=== PATIENT | female | born 1995 | race African-American/Black ===

== ENCOUNTER 2019-05-24 07:59 | Emergency (ER) | payer OTHER ==
[~2019-05-24] VITALS: Ht 167.6 cm; Wt 59.0 kg
[2019-05-24 08:09] VITALS: BP 111/56
[2019-05-24] MEDS ORDERED: NEOM10SO7 OT (08:31)
[2019-05-24] MEDS ORDERED: ACET325T9 PO (08:31)
--- NOTE | 2019-05-24 08:32 | PHYS DOC ---
Past History Past Medical History: No Pertinent History Past Surgical History: Smoking: Non-smoker Alcohol Use: None Drug Use: None Adult General Chief Complaint Chief Complaint: EARACHE/EAR PAIN HPI HPI Patient is a 24-year-old female who presents with right year pain that has been going on for the past week, getting worse over time. Her boyfriend looked at her ear 3 days ago and said that there was something in it that looked like a zit. He reevaluated it this morning, and tried popping it. There was return of some bloody and purulent material. There has been no travel.There has been no swimming. Patient denies any fever. She reports decreased hearing in the right year because of this. Pain is moderate to severe. She has taken no pain medicine because she is approximately 4 months . Increased pain in the ear with touch. This is her fourth . -0-0-3. No vaginal bleeding or discharge. She reports feeling the baby move.[] Review of Systems Review of Systems Constitutional: Denies fever or chills [] Eyes: Denies change in visual acuity, redness, or eye pain [] HENT: Denies nasal congestion or sore throat, see history of present illness [] Respiratory: Denies cough or shortness of breath [] Cardiovascular: No chest pain or palpitations[] GI: Denies abdominal pain, nausea, vomiting, bloody stools or diarrhea [] : Denies dysuria or hematuria [] Musculoskeletal: Denies back pain or joint pain [] Integument: Denies rash or skin lesions [] Neurologic: Denies headache, focal weakness or sensory changes [] Endocrine: Denies polyuria or polydipsia [] All other systems were reviewed and found to be within normal limits, except as documented in this note. Allergies Allergies Allergies Coded Allergies Type Severity Reaction Last Updated Verified No Known Drug Allergies 05/24/19 No Physical Exam Physical Exam Constitutional: Well developed, well nourished, no acute distress, non-toxic appearance. [] HENT: Normocephalic, atraumatic, bilateral external ears normal, no mastoid tenderness. Left ear canal and TM are normal. Right canal has a pustule at the 1 o'clock position. There is swelling of the right canal. Right TM is normal. Oropharynx moist, no oral exudates, nose normal. [] Eyes: PERRLA, EOMI, conjunctiva normal, no discharge. [] Neck: Normal range of motion, no tenderness, supple, no stridor. [] Cardiovascular:Heart rate regular rhythm, no murmur [] Lungs & Thorax: Bilateral breath sounds clear to auscultation [] Abdomen: Bowel sounds normal, soft, no tenderness, fundus is present below the umbilicus, heart tones in the 160s, no pulsatile masses. [] Skin: Warm, dry, no erythema, no rash. [] Back: No tenderness, no CVA tenderness. [] Extremities: No tenderness, no cyanosis, no clubbing, ROM intact, no edema. [] Neurologic: Alert and oriented X 3, normal motor function, normal sensory function, no focal deficits noted. [] Psychologic: Affect normal, judgement normal, mood normal. [] Current Patient Data Vital Signs Vital Signs Date Time Temp Pulse Resp B/P (MAP) Pulse Ox O2 Delivery O2 Flow Rate FiO2 05/24/19 08:09 97.8 104 18 100 Room Air EKG EKG [] Radiology/Procedures Radiology/Procedures [] Course & Med Decision Making Course & Med Decision Making Pertinent Labs and Imaging studies reviewed. (See chart for details) Emergency department course: Patient arrived, was placed in bed, and tolerated exam well. Findings and plan were discussed with the patient who voiced understanding. All questions were answered. She was discharged in improved condition. Medical decision making: Patient appears to have an otitis externa. We will treat with topical medication. Will prescribe acetaminophen for pain management given that she is .[] Dragon Disclaimer Dragon Disclaimer This electronic medical record was generated, in whole or in part, using a voice recognition dictation system. Departure Departure: Impression: Primary Impression: Right otitis externa Disposition: 01 HOME, SELF-CARE Condition: IMPROVED Referrals: PCP,NO (PCP) Patient Instructions: Otitis Externa Additional Instructions: Follow-up with your regular doctor in 2 days for a recheck. Use the medication as prescribed. Return to the ER if worsening pain, fever of more than 101, or any other concerns. Scripts Acetaminophen (TYLENOL) 325 Mg Tablet 1-2 TAB PO QID for PAIN, #60 TAB 0 Refills Prov: HEATHER GUO DO 05/24/19 Neomycin/Polymyxin B Sulf/Hc ([id number] EAR SOLN) 10 Ml Solution 4 DROP OT QID for otitis externa for 10 Days, MISC Prov: HEATHER GUO DO 05/24/19 Problem Qualifiers Primary Impression: Right otitis externa Otitis externa type: unspecified type Chronicity: acute Qualified Codes: H60.501 - Unspecified acute noninfective otitis externa, right ear HEATHER GUO DO May 24, 2019 08:32
== END 2019-05-24 08:36 | disposition home or self-care (01) ==
LOC: ER 07:59
DX: O26.892 Other specified pregnancy related conditions, second trimester (principal); H60.91 Unspecified otitis externa, right ear; Z3A.00 Weeks of gestation of pregnancy not specified
CPT/HCPCS: 99283

== ENCOUNTER 2019-05-27 02:02 | Emergency (ER) | payer OTHER ==
[~2019-05-27] VITALS: Ht 167.6 cm; Wt 59.0 kg
[~2019-05-27 02:02] MED LIST: ACET325T9 PO; NEOM10SO7 OT
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
[2019-05-27 02:50] VITALS: BP 117/96
[2019-05-27 03:00] LABS: BILIRUBIN,URINE NEG (NEG); CLARITY,URINE CLEAR; COLOR,URINE YELLOW; GLUCOSE,URINE NEG (NEG); NITRITE,URINE NEG (NEG); UROBILINOGEN,URINE 0.2 mg/dL (0.2 mg/dL)
[2019-05-27 03:01] LABS: BACTERIA,URINE 0 /HPF (0-FEW); RBC,URINE 0 /HPF (0-2); SQUAMOUS EPITHELIAL CELL,UR MOD /LPF; WBC,URINE RARE /HPF (0-4)
== END 2019-05-27 02:50 | disposition left against medical advice (07) ==
LOC: ER 02:02
DX: O9A.212 Injury, poisoning and certain other consequences of external causes complicating pregnancy, second trimester (principal); Z3A.00 Weeks of gestation of pregnancy not specified; R10.30 Lower abdominal pain, unspecified; Y08.89XA Assault by other specified means, initial encounter; Y93.89 Activity, other specified; Y92.89 Other specified places as the place of occurrence of the external cause; Y99.8 Other external cause status
CPT/HCPCS: 81001; 99283